=== PATIENT | female | born 1950 | race Caucasian/White ===

== ENCOUNTER 2020-10-02 19:03 | Emergency (ER) | payer OTHER ==
[2020-10-02] MEDS ORDERED: NORVASC2.5 MG (19:56)
[2020-10-02] MEDS ORDERED: ZANAFLEX2 M1 (19:56)
[2020-10-02] MEDS ORDERED: HYDROCHLOROTH12.5 MG (19:57)
[2020-10-02] MEDS ORDERED: COZAAR100 MG (19:57)
== END 2020-10-03 01:51 | disposition home or self-care (01) ==
LOC: ER 19:03
DX: I16.1 Hypertensive emergency (principal); I10 Essential (primary) hypertension; Z03.818 Encounter for observation for suspected exposure to other biological agents ruled out

== ENCOUNTER 2020-12-09 16:00 | Emergency (ER) | payer OTHER ==
[~2020-12-09] VITALS: Ht 149.9 cm; Wt 56.7 kg
[~2020-12-09 16:00] MED LIST: COZAAR100 MG; HYDROCHLOROTH12.5 MG; NORVASC2.5 MG; ZANAFLEX2 M1
[2020-12-09] MEDS ORDERED: MOTION-TIME25 MG PO (18:34)
== END 2020-12-09 19:01 | disposition home or self-care (01) ==
LOC: ER 16:00
DX: R42 Dizziness and giddiness (principal)

== ENCOUNTER 2020-12-14 09:11 | Outpatient (CLI) | payer OTHER ==
[~2020-12-14 09:11] MED LIST changes: +MOTION-TIME25 MG PO
== END 2020-12-14 16:23 | disposition home or self-care (01) ==
LOC: OFIC 805 09:11
PROVIDERS: ATTEND Otolaryngology
DX: R42 Dizziness and giddiness (principal)

== ENCOUNTER 2020-12-23 12:15 | Outpatient (CLI) | payer OTHER | END 2020-12-23 15:54 | disposition home or self-care (01) | LOC: OFIC 805 12:15 | PROVIDERS: ATTEND Otolaryngology | DX: R42 Dizziness and giddiness (principal); H91.8X3 Other specified hearing loss, bilateral ==

== ENCOUNTER 2024-01-14 09:29 | Emergency (ER) | payer OTHER ==
[~2024-01-14] VITALS: Ht 147.3 cm; Wt 56.7 kg
== END 2024-01-14 11:34 | disposition home or self-care (01) ==
LOC: ER 09:29
DX: H01.006 Unspecified blepharitis left eye, unspecified eyelid (principal)